=== PATIENT | female | born 1955 | race Caucasian/White ===

== ENCOUNTER → 2016-10-21 | Outpatient (CLI) | payer MEDICARE ==
[~2016-10-21] VITALS: Ht 162.6 cm; Wt 58.1 kg
== END ==
LOC: OPSV 12:42
DX: Z45.89 Encounter for adjustment and management of other implanted devices (principal); Z88.5 Allergy status to narcotic agent; Z88.0 Allergy status to penicillin
CPT/HCPCS: G0463; J1642

== ENCOUNTER 2016-11-25 11:41 | Emergency (ER) | payer MEDICARE ==
[2016-11-25 14:36] LABS: HEMOGLOBIN 13.2 gm/dl (12.3-15.3); RED BLOOD COUNT 4.32 M/UL (4.00-5.10); WHITE BLOOD COUNT 8.6 K/UL (4.5-11.0)
[2016-11-25 14:59] LABS: BUN/CREATININE RATIO 13 (0-10)
== END 2016-11-25 18:50 | disposition home or self-care (01) ==
LOC: ER1 11:41
PROVIDERS: Student in an Organized Health Care Education/Training Program
DX: N20.0 Calculus of kidney (principal); K62.5 Hemorrhage of anus and rectum; I10 Essential (primary) hypertension; J44.9 Chronic obstructive pulmonary disease, unspecified; Z90.49 Acquired absence of other specified parts of digestive tract; Z88.0 Allergy status to penicillin; Z88.5 Allergy status to narcotic agent
CPT/HCPCS: 36415; 80053; 81001; 82272; 83605; 83690; 85025; 85610; 93005; 96374; 96375; 96523; 99284; C9113; J1642; J2550; J7050; Q9962

== ENCOUNTER → 2016-12-23 | Outpatient (CLI) | payer MEDICARE ==
[~2016-12-23] VITALS: Ht 162.6 cm; Wt 58.1 kg
== END ==
LOC: OPSV 11:30
DX: Z45.89 Encounter for adjustment and management of other implanted devices (principal)
CPT/HCPCS: 96523; J1642

== ENCOUNTER → 2017-04-21 | Outpatient (CLI) | payer MEDICARE ==
[~2017-04-21] VITALS: Ht 162.6 cm; Wt 58.1 kg
== END ==
LOC: OPSV 11:57
DX: Z45.89 Encounter for adjustment and management of other implanted devices (principal)
CPT/HCPCS: 96523; J1642

== ENCOUNTER → 2021-12-21 | Outpatient (CLI) | payer MEDICARE | LOC: KOH-I 10:08 | DX: M79.672 Pain in left foot (principal); M79.671 Pain in right foot; M19.072 Primary osteoarthritis, left ankle and foot; M19.071 Primary osteoarthritis, right ankle and foot | CPT/HCPCS: 73630 ==

== ENCOUNTER → 2021-12-28 | Outpatient (CLI) | payer MEDICARE | LOC: KOH-I 13:39 | DX: M21.962 Unspecified acquired deformity of left lower leg (principal); R60.0 Localized edema; M79.672 Pain in left foot; M79.89 Other specified soft tissue disorders; M21.762 Unequal limb length (acquired), left tibia | CPT/HCPCS: 73718 ==

== ENCOUNTER 2022-03-24 20:27 | Inpatient (IN) | payer MEDICARE ==
[~2022-03-24] VITALS: Ht 162.6 cm; Wt 72.2 kg
[2022-03-25 01:17] LABS: HEMOGLOBIN 13.6 gm/dl (12.3-15.3); RED BLOOD COUNT 4.51 M/UL (4.00-5.10); WHITE BLOOD COUNT 13.7 K/UL (4.5-11.0)
[2022-03-25 02:11] LABS: BUN/CREATININE RATIO 31 (0-10)
[2022-03-25 09:00] LABS: BUN/CREATININE RATIO 31 (0-10)
[2022-03-25 09:02] LABS: RED BLOOD COUNT 4.26 M/UL (4.00-5.10)
[2022-03-25] MEDS ORDERED: ATORVASTATIN CA10 MG PO (10:27)
[2022-03-25] MEDS ORDERED: CYMBALTA60 MG PO (10:27)
[2022-03-25] MEDS ORDERED: CLONIDINE HCL0.1 MG PO (10:27)
[2022-03-25] MEDS ORDERED: METOPROLOL SUCC50 MG PO (10:27)
[2022-03-25] MEDS ORDERED: PROTONIX 40 MG40 M1 PO (10:27)
[2022-03-25] MEDS ORDERED: ESZOPICLONE3 MG PO (10:28)
[2022-03-25] MEDS ORDERED: PREGABALIN150 MG PO (10:28)
[2022-03-25] MEDS ORDERED: HYDRALAZINE HCL25 MG PO (10:28)
[2022-03-25] MEDS ORDERED: TIZANIDINE HCL4 MG PO (10:28)
[2022-03-25] MEDS ORDERED: LYRICA300 MG PO (10:29)
[2022-03-25] MEDS ORDERED: CYANOCOBAL1000 MCG/1 INJ (10:30)
[2022-03-25] MEDS ORDERED: TYLENOL EXTRA500 MG PO (10:30)
[2022-03-26 02:07] LABS: HEMOGLOBIN 11.3 gm/dl (12.3-15.3); WHITE BLOOD COUNT 6.4 K/UL (4.5-11.0)
[2022-03-26 02:09] LABS: RED BLOOD COUNT 3.7 M/UL (4.00-5.10)
[2022-03-26 02:31] LABS: BUN/CREATININE RATIO 27 (0-10)
[2022-03-27 01:22] LABS: HEMOGLOBIN 11.9 gm/dl (12.3-15.3); RED BLOOD COUNT 3.94 M/UL (4.00-5.10); WHITE BLOOD COUNT 6.4 K/UL (4.5-11.0)
[2022-03-27 01:53] LABS: BUN/CREATININE RATIO 13 (0-10)
[2022-03-27] MEDS ORDERED: METRONIDAZOLE500 MG PO (10:50)
[2022-03-27] MEDS ORDERED: LEVOFLOXACIN750 MG PO (10:50)
[2022-03-27] MEDS ORDERED: PHENERGAN 25 MG25 M1 PO (10:50)
[2022-03-27] MEDS ORDERED: PERCOCET 5/325 T1 EA PO (10:51)
== END 2022-03-27 14:25 | disposition home or self-care (01) | DRG 389 ==
LOC: PROG CARE 20:27
PROVIDERS: Internal Medicine; ADMIT Internal Medicine
DX: K56.7 Ileus, unspecified (principal); K51.90 Ulcerative colitis, unspecified, without complications; I16.0 Hypertensive urgency; E78.5 Hyperlipidemia, unspecified; I10 Essential (primary) hypertension; E53.8 Deficiency of other specified B group vitamins; G62.9 Polyneuropathy, unspecified; Z90.710 Acquired absence of both cervix and uterus; Z98.890 Other specified postprocedural states; Z90.49 Acquired absence of other specified parts of digestive tract; Z88.0 Allergy status to penicillin; Z88.5 Allergy status to narcotic agent; Z80.8 Family history of malignant neoplasm of other organs or systems
CPT/HCPCS: 36415; 71045; 74250; 80048; 80053; 81001; 82533; 83735; 83880; 84100; 84439; 84443; 85025; 85027; 85610; 86140; 87040; 87086; 93005; J0692; J1170; J1642; J2185; J2550; J2765; J3475